=== PATIENT | female | born 1995 ===

== ENCOUNTER → 2021-06-30 | Outpatient (CLI) | payer OTHER ==
[2021-07-01 09:49] LABS: Candida species (DNA Probe) Negative (NEGATIVE); G. vaginalis (DNA Probe) Negative (NEGATIVE); T. vaginalis (DNA Probe) Negative (NEGATIVE)
== END | disposition home or self-care (01) ==
LOC: LAB SHORT 17:58
PROVIDERS: Family Medicine
DX: Z11.3 Encounter for screening for infections with a predominantly sexual mode of transmission (principal); R30.9 Painful micturition, unspecified
CPT/HCPCS: 87077; 87086; 87186; 87480; 87510; 87660

== ENCOUNTER 2021-10-07 22:25 | Emergency (ER) | payer OTHER ==
[~2021-10-07] VITALS: Ht 175.3 cm; Wt 84.4 kg
[2021-10-07] MEDS ORDERED: BENADRYL25 MG PO (23:05)
[2021-10-08] MEDS ORDERED: PRED20 PO (22:57)
== END 2021-10-07 23:14 | disposition home or self-care (01) ==
LOC: ER 22:25
DX: L27.0 Generalized skin eruption due to drugs and medicaments taken internally (principal); T36.0X5A Adverse effect of penicillins, initial encounter; Z91.018 Allergy to other foods
CPT/HCPCS: 99283; A9270

== ENCOUNTER 2021-10-08 19:06 | Emergency (ER) | payer OTHER ==
[~2021-10-08] VITALS: Ht 175.3 cm; Wt 84.4 kg
[~2021-10-08 19:06] MED LIST: BENADRYL25 MG PO
[2021-10-08] MEDS ORDERED: PRED20 PO (22:57)
== END 2021-10-08 23:15 | disposition home or self-care (01) ==
LOC: ER 19:06
DX: R21 Rash and other nonspecific skin eruption (principal); T36.0X5A Adverse effect of penicillins, initial encounter; Z91.018 Allergy to other foods
CPT/HCPCS: 36415; 86308; 87081; 87430; 96374; 96375; 99283-25; J1200; J2930

== ENCOUNTER 2024-10-24 17:17 | Emergency (ER) | payer OTHER ==
[~2024-10-24] VITALS: Ht 177.8 cm; Wt 72.6 kg
[~2024-10-24 17:17] MED LIST changes: +PRED20 PO
[2024-10-24 18:09] LABS: BASOPHILS ABSOLUTE AUTO 0.05 K/mm3 (0.00-0.23); BASOPHILS PERCENT AUTO 1 % (0-2); EOSINOPHILS ABSOLUTE AUTO 0.13 K/mm3 (0.00-0.68); EOSINOPHILS PERCENT AUTO 2 % (0-6); Hematocrit 44.3 % (33.0-51.0); IMMATURE GRAN ABSOLUTE AUTO 0.02 K/mm3 (0.00-0.10); IMMATURE GRAN PERCENT AUTO 0 % (0-1); LYMPHOCYTES ABSOLUTE AUTO 1.89 K/mm3 (0.84-5.20); LYMPHOCYTES PERCENT AUTO 28 % (21-46); MONOCYTES ABSOLUTE AUTO 0.37 K/mm3 (0.16-1.47); MONOCYTES PERCENT AUTO 6 % (4-13); Mean Corpuscular HGB 31.6 pg (26.0-34.0); Mean Corpuscular HGB Conc 33.9 g/dL (31.5-36.5); Mean Corpuscular Volume 93 fL (80-100); Mean Platelet Volume 9.8 fL (9.1-12.4); NEUTROPHILS ABSOLUTE AUTO 4.29 K/mm3 (1.96-9.15); NEUTROPHILS PERCENT AUTO 64 % (41-73); Platelet Count 318 K/mm3 (150-400); RDW Coefficient Variation 11.9 % (11.7-14.2); RDW Standard Deviation 41.1 fL (35.1-46.3); Red Blood Cell Count 4.75 M/mm3 (3.80-5.20); White Blood Cell Count 6.75 K/mm3 (4.00-11.30)
[2024-10-24 18:28] LABS: Albumin, Blood 4.3 g/dL (3.4-5.0); Albumin/Globulin Ratio 1.2 (0.8-1.8); Bilirubin, Total 1.5 mg/dL (0.1-1.0); Bun/Creatinine Ratio 9.8 (12.0-20.0); Calcium, Blood 9.5 mg/dL (8.5-10.1); Creatinine, Blood 0.92 mg/dL (0.40-1.00); Globulin, Blood 3.6 g/dL (2.2-4.0); Potassium, Blood 3.4 mmol/L (3.5-5.5); Total Protein, Blood 7.9 g/dL (6.4-8.2)
[2024-10-24] MEDS ORDERED: Potassium Chloride 20 MEQ/15 ML UDC PO ONE (22:10)
[2024-10-24] MEDS ORDERED: Magnesium Sulf 2 GM/Water 50ML 50 ML IV ONE (22:10)
[2024-10-24 22:37] LABS: Magnesium, Blood 1.8 mg/dL (1.6-2.4)
[2024-10-25] VITALS: BP 116/87
== END 2024-10-25 00:30 | disposition home or self-care (01) ==
LOC: ER 17:17
PROVIDERS: Physician Assistant
DX: I49.8 Other specified cardiac arrhythmias (principal); R07.89 Other chest pain; Z91.018 Allergy to other foods; Z88.0 Allergy status to penicillin; Z91.013 Allergy to seafood
CPT/HCPCS: 71046; 80053; 83735; 84484; 85025; 93005; 93010; 96374; 99285-25; A9270; J3475